=== PATIENT | male | born 2005 | race American Indian/Alaskan Native ===

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

== ENCOUNTER 2025-01-09 13:55 | Emergency (ER) | payer SELFPAY | END 2025-01-09 14:12 | disposition home or self-care (01) | LOC: DL.ED 13:55 | DX: R56.9 Unspecified convulsions (principal) | CPT/HCPCS: 99283; 99285 ==